=== PATIENT | male | born 1960 | race Caucasian/White ===

== ENCOUNTER 2020-11-10 07:04 | Day surgery (SDC) | payer OTHER ==
[~2020-11-10 07:04] MED LIST: Lactated Ringers 1,000 ML IV SCH; Lidocaine 1%/Sod Bicarbonate in NS 8.4% 1 ML Syringe IDERM PRN; Sodium Chloride 0.9% 10 ML Syringe FLUSH PRN
[2020-11-10] MEDS ORDERED: Bupivacaine 0.5%/EPINEPHrine 1:200,000 50 ML MDV ONE (07:10)
--- NOTE | 2020-11-10 07:25 | PCM.PREANE ---
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 - Anesthesia/Transfusion/Family Hx Anesthesia History: Prior Anesthesia Reaction (nausea) Family History of Anesthesia Reaction: No Transfusion History: No Prior Transfusion(s) - Review of Systems General: No Symptoms Pulmonary: No Symptoms Cardiovascular: No Symptoms Gastrointestinal: No Symptoms Neurological: Numbness (left arm is numb - thorasic outlet syndrome) Other: Reports: None - Physical Assessment NPO Status Date: 11/09/20 NPO Status Time: 00:00 Height: 1.85 m Weight: 99 kg ASA Class: 2 Mental Status: Alert & Oriented x3 Airway Class: Mallampati = 1 Dentition: Reports: Normal Dentition Thyro-Mental Finger Breadths: 3 Mouth Opening Finger Breadths: 2 ROM/Head Extension: Full Lungs: Clear to Auscultation, Normal Respiratory Effort Cardiovascular: Regular Rate, Regular Rhythm - Allergies Allergies/Adverse Reactions: Allergies Allergy/AdvReac Type Severity Reaction Status Date / Time cashew nut Allergy Swelling Verified 11/09/20 13:03 lisinopril AdvReac Cough Verified 11/09/20 13:03 - Blood Blood Available: No Product(s) Available: None - Anesthesia Plan Pre-Op Medication Ordered: None - Acknowledgements Anesthesia Type Planned: MAC Pt an Appropriate Candidate for the Planned Anesthesia: Yes Alternatives and Risks of Anesthesia Discussed w Pt/Guardian: Yes Pt/Guardian Understands and Agrees with Anesthesia Plan: Yes PreAnesthesia Questionnaire HEENT History: Reports: Other (See Below) Other HEENT History: sinus infection, conjunctivitis, wears contacts Cardiovascular History: Reports: Hypertension, Other (See Below) Other Cardiovascular History: chest wall pain Respiratory History: Reports: Other (See Below) Other Respiratory History: cough Gastrointestinal History: Reports: GERD Genitourinary History: Reports: None 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 Musculoskeletal History: Reports: Other (See Below) Other Musculoskeletal History: ankle injury Neurological History: Reports: Other (See Below) Other Neuro History: thoracic outlet syndrome Psychiatric History: Reports: Other (See Below) Other Psychiatric History: stress Endocrine/Metabolic History: Reports: None Hematologic History: Reports: Other (See Below) Other Hematologic History: decreased potassium Immunologic History: Reports: None Oncologic (Cancer) History: Reports: None Dermatologic History: Reports: Other (See Below) Other Dermatologic History: facial skin lesions, SCC - Past Surgical History Head Surgeries/Procedures: Reports: None HEENT Surgical History: Reports: Tonsillectomy Cardiovascular Surgical History: Reports: None Respiratory Surgical History: Reports: None GI Surgical History: Reports: Appendectomy, Cholecystectomy, Hernia, Inguinal Female Surgical History: Reports: None Male Surgical History: Reports: None Endocrine Surgical History: Reports: None Neurological Surgical History: Reports: None Oncologic Surgical History: Reports: None Dermatological Surgical History: Reports: None - SUBSTANCE USE Tobacco Use Status *Q: Never Tobacco User Tobacco Use Within Last Twelve Months: No Second Hand Smoke Exposure: No Days Per Week of Alcohol Use: 0 Number of Drinks Per Day: 0 Total Drinks Per Week: 0 Recreational Drug Use History: No - HOME MEDS Home Medications: Home Meds Potassium Chloride [Klor-Con M20] 20 meq PO DAILY 11/09/20 [History] amLODIPine [Norvasc] 5 mg PO DAILY 11/09/20 [History] hydroCHLOROthiazide [Hydrochlorothiazide] 25 mg PO DAILY 11/09/20 [History] - CURRENT (IN HOUSE) MEDS Current Meds: Current Medications Lactated Ringer's (Ringers, Lactated) 1,000 mls @ 125 mls/hr IV ASDIRECTED LILA Stop: 11/10/20 23:00 Lidocaine/Sodium Bicarbonate (Lidocaine 1%/Sod Bicarbonate In Ns 8.4% 1 Ml Syringe) 0.25 ml IDERM ONETIME PRN PRN Reason: Prior to IV Start Stop: 11/10/20 18:00 Sodium Chloride (Sodium Chloride 0.9% 10 Ml Syringe) 10 ml FLUSH ASDIRECTED PRN PRN Reason: Keep Vein Open Stop: 11/10/20 18:00 Discontinued Medications Bupivacaine HCl/Epinephrine Bitart (Bupivacaine 0.5%/Epinephrine 1:200,000 50 Ml Mdv) Confirm Administered Dose 50 ml .ROUTE .STK-MED ONE Stop: 11/10/20 07:11
[2020-11-10] MEDS ORDERED: Propofol 200 MG/20 ML SDV ONE ×3 (07:36→08:40)
[2020-11-10] MEDS ORDERED: Lidocaine 1% 4 ML ONE (07:37)
[2020-11-10] MEDS ORDERED: Midazolam 1 MG/ML 2 ML SDV ONE (07:37)
[2020-11-10] MEDS ORDERED: fentaNYL 100 MCG/2 ML SDV ONE (07:37)
[2020-11-10] MEDS ORDERED: Bacitracin Oint 15 GM Tube ONE (09:05)
--- NOTE | 2020-11-10 09:22 | PCM48HPAN ---
Post Anesthesia Note - EVALUATION WITHIN 48HRS OF ANESTHETIC Vital Signs in Normal Range: Yes Patient Participated in Evaluation: Yes Respiratory Function Stable: Yes Airway Patent: Yes Cardiovascular Function Stable: Yes Hydration Status Stable: Yes Pain Control Satisfactory: Yes Nausea and Vomiting Control Satisfactory: Yes Mental Status Recovered: Yes Vital Signs: Last Vital Signs Temp 36.3 C 11/10/20 07:20 Pulse 70 11/10/20 07:20 Resp 16 11/10/20 07:20 BP 124/89 11/10/20 07:20 Pulse Ox 95 11/10/20 07:20 - COMMENTS/OBSERVATIONS Free Text/Narrative:: NO ANESTHESIA COMPLICATIONS NOTED
--- NOTE | 2020-11-10 09:36 | PCM.PRNOTE ---
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 Subsequent MRI face and CT neck show no evidence of locoregional disease. Findings: frozen section today confirmed negative margins on specimen. a 3 x 3 cm full thickness skin specimen was excised with grossly negative margins, down to subcutaneous fatty tissue. Detailed Report: The patient was taken to the operating room and placed supine. Time out was performed and monitored anesthesia care initiated. The facial lesion on the left lateral cheek had been marked. The area was prepped with iodine solution and draped in sterile fashion. 10 cc 0.5% marcaine with epinephrine was injected intradermally around the scar from prior biopsy which measured 1 x 1.5 cm. A circular incision wwas made with the scalpel was made around the lesion with a 0.5 cm margin, leaving a 3 x 3 cm wound. The skin was excised at the level of subcutaneous tissue. Orienting stitches were placed for the pathologist for frozen section analysis. The margins appeared clear of disease on frozen section. An inferior hatchet flap was raised measuring 3 x 1 cm. This was brought into the center of the wound and a linear closure was completed with se veral interrupted 5-0 prolene sutures. The wound was dressed with bacitracin, dry gauze and tegaderm.
== END 2020-11-10 11:00 | disposition home or self-care (01) ==
LOC: JD.SDS 07:04
PROVIDERS: ATTEND Surgery
DX: C44.320 Squamous cell carcinoma of skin of unspecified parts of face (principal); I10 Essential (primary) hypertension; E87.6 Hypokalemia; K21.9 Gastro-esophageal reflux disease without esophagitis; Z88.8 Allergy status to other drugs, medicaments and biological substances; Z91.018 Allergy to other foods; Z79.899 Other long term (current) drug therapy; Z98.890 Other specified postprocedural states; Z90.49 Acquired absence of other specified parts of digestive tract
CPT/HCPCS: 11643; 15757; A9270; J2250; J2704; J3010; J3490; J7120; 00300

== ENCOUNTER 2021-03-24 10:18 | Day surgery (SDC) | payer OTHER ==
[~2021-03-24 10:18] MED LIST changes: -Sodium Chloride 0.9% 10 ML Syringe FLUSH PRN; +Sodium Chloride 0.9% 10 ML Syringe FLUSH SCH
--- NOTE | 2021-03-24 10:21 | PCM.PREANE ---
Preanesthetic Assessment - Procedure Proposed Procedure: Colonoscopy - Anesthesia/Transfusion/Family Hx Anesthesia History: Prior Anesthesia Reaction (nausea) Family History of Anesthesia Reaction: No Transfusion History: No Prior Transfusion(s) Intubation History: Unknown - Review of Systems General: No Symptoms Pulmonary: No Symptoms Cardiovascular: No Symptoms Gastrointestinal: Diarrhea (prep induced/cramping) Neurological: Numbness (left arm from thoracic outlet syndrome) Other: Reports: None - Physical Assessment NPO Status Date: 03/23/21 NPO Status Time: 23:59 Vital Signs: 156/89 HR 74 T 97.7 RR 18 99% Height: 1.85 m Weight: 96.7 kg ASA Class: 2 Mental Status: Alert & Oriented x3 Airway Class: Mallampati = 2 Dentition: Reports: [place](s), [place] Thyro-Mental Finger Breadths: 2 Mouth Opening Finger Breadths: 2 ROM/Head Extension: Full Lungs: Clear to Auscultation, Normal Respiratory Effort Cardiovascular: Regular Rate, Regular Rhythm, No Murmurs - Lab Values: Labs reviewed and okay to proceed - Imaging/EKG Impressions: Awaiting results, if EKG WNL we will proceed with procedure - Allergies Allergies/Adverse Reactions: Allergies Allergy/AdvReac Type Severity Reaction Status Date / Time cashew nut Allergy Swelling Verified 03/23/21 10:22 lisinopril AdvReac Cough Verified 03/23/21 10:22 - Anesthesia Plan Beta Michael: Metoprolol Med Last Dose Date: 03/23/21 Med Last Dose Time: 23:59 - Acknowledgements Anesthesia Type Planned: MAC Pt an Appropriate Candidate for the Planned Anesthesia: Yes Alternatives and Risks of Anesthesia Discussed w Pt/Guardian: Yes Pt/Guardian Understands and Agrees with Anesthesia Plan: Yes PreAnesthesia Questionnaire HEENT History: Reports: Other (See Below) Other HEENT History: acute sinus infection, conjunctivitis, retinal detachment repair, tonsillectomy Cardiovascular History: Reports: Hypertension Other Cardiovascular History: hypokalemia, chest wall pain?, thoracic outlet syndrome (left side) patient stated has "resolved" since he took gabapentin Respiratory History: Reports: Bronchitis, Recurrent Other Respiratory History: cough Gastrointestinal History: Reports: GERD Genitourinary History: Reports: None 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 SCC - Past Surgical History HEENT Surgical History: Reports: Detached Retina (repair), Tonsillectomy Cardiovascular Surgical History: Reports: None GI Surgical History: Reports: Appendectomy, Cholecystectomy, Hernia Repair/Other Other GI Surgeries/Procedures: hernia repair x 3 Female Surgical History: Reports: None Male Surgical History: Reports: None Musculoskeletal Surgical History: Reports: Other (See Below) Other Musculoskeletal Surgeries/Procedures:: hand tendon repair - SUBSTANCE USE Tobacco Use Status *Q: Never Tobacco User Tobacco Use Within Last Twelve Months: No Second Hand Smoke Exposure: No Days Per Week of Alcohol Use: 0 Number of Drinks Per Day: 0 Total Drinks Per Week: 0 Recreational Drug Use History: No - HOME MEDS Home Medications: Home Meds Potassium Chloride [Klor-Con M20] 20 meq PO DAILY 11/09/20 [History] amLODIPine [Norvasc] 5 mg PO DAILY 11/09/20 [History] hydroCHLOROthiazide [Hydrochlorothiazide] 25 mg PO DAILY 11/09/20 [History] - CURRENT (IN HOUSE) MEDS Current Meds: Current Medications Lactated Ringer's (Ringers, Lactated) 1,000 mls @ 125 mls/hr IV ASDIRECTED LILA Stop: 03/24/21 23:00 Lidocaine/Sodium Bicarbonate (Lidocaine 1%/Sod Bicarbonate In Ns 8.4% 1 Ml Syringe) 0.25 ml IDERM ONETIME PRN PRN Reason: Prior to IV Start Stop: 03/24/21 18:00 Sodium Chloride (Sodium Chloride 0.9% 10 Ml Syringe) 10 ml FLUSH 0900,2100 [facility] Stop: 03/24/21 18:00
--- NOTE | 2021-03-24 11:16 | PCM.SN.2 ---
#1 Interpretation EKG Date: 03/24/21 Time: 10:19 Rhythm: NSR Rate (Beats/Min): 59 [place]: Normal P-Wave: Present QRS: Normal ST-T: Normal QT: Normal
[2021-03-24] MEDS ORDERED: Propofol 200 MG/20 ML SDV ONE ×3 (11:34→12:34)
[2021-03-24] MEDS ORDERED: Lidocaine 1% 4 ML ONE ×2 (11:34→11:35)
[2021-03-24] MEDS ORDERED: Lactated Ringers 0 ML ONE (11:51)
[2021-03-24] MEDS ORDERED: Lactated Ringers 1,000 ML ONE (12:36)
--- NOTE | 2021-03-24 13:09 | PCM.PRNOTE ---
- Free Text/Narrative Note: Date: 03/24/2021 Procedure: initial screening colonoscopy Endoscopist: Vlad Johnson MD Findings: excellent prep, cecum reached, three small polyps identified and removed. Sigmoid diverticulosis. Detailed Report: The patient was taken to the endoscopy suite and placed in left lateral decubitus position. Timeout was performed and monitored anesthesia care was initiated. A small perianal skin tag was noted on visual inspection. Digital rectal exam was unremarkable. The colonoscope was inserted and advanced to the cecum with ease. The appendiceal orifice and ileocecal junction were visualized. Prep was excellent. Just distal to the ileocecal valve was a 1 cm polyp which was removed entirely using hot snare polypectomy technique. The specimen was successfully retrieved. Just distal to this, a minuscule polyp was identified and removed with a hot snare as well. Near the hepatic flexure, a small polyp was identified which was removed entirely using cold forceps. No other polyps were identified as the scope was slowly withdrawn and mucosal surfaces were carefully inspected. Diverticular disease was noted within the bounds of the sigmoid. Retroflexion in the rectum revealed no significant pathology. Air was suctioned from the distal colon and rectum prior to withdrawal of the scope. The patient tolerated the procedure well.
--- NOTE | 2021-03-24 13:16 | PCM48HPAN ---
Post Anesthesia Note - EVALUATION WITHIN 48HRS OF ANESTHETIC Vital Signs in Normal Range: Yes Patient Participated in Evaluation: Yes Respiratory Function Stable: Yes Airway Patent: Yes Cardiovascular Function Stable: Yes Hydration Status Stable: Yes Pain Control Satisfactory: Yes Nausea and Vomiting Control Satisfactory: Yes Mental Status Recovered: Yes Vital Signs: Last Vital Signs Temp 36.5 C 03/24/21 10:00 Pulse 74 03/24/21 10:00 Resp 18 03/24/21 10:00 BP 157/89 H 03/24/21 10:00 Pulse Ox 99 03/24/21 10:00
== END 2021-03-24 14:07 | disposition home or self-care (01) ==
LOC: JD.SDS 10:18
PROVIDERS: ATTEND Surgery
DX: Z12.11 Encounter for screening for malignant neoplasm of colon (principal); D12.2 Benign neoplasm of ascending colon; D12.3 Benign neoplasm of transverse colon; K57.30 Diverticulosis of large intestine without perforation or abscess without bleeding; I10 Essential (primary) hypertension; E87.6 Hypokalemia; Z88.8 Allergy status to other drugs, medicaments and biological substances; Z91.018 Allergy to other foods; Z79.899 Other long term (current) drug therapy; Z98.890 Other specified postprocedural states
CPT/HCPCS: 36415; 45380; 45385; 80053; J2704; J7120; 00812